=== PATIENT | male | born 1975 | race Caucasian/White ===

== ENCOUNTER 2022-01-23 21:29 | Emergency (ER) | payer BC ==
[~2022-01-23] VITALS: Ht 172.7 cm; Wt 77.7 kg
[2022-01-23 21:29] VITALS: BP 118/77
[2022-01-23] MEDS ORDERED: CETI-24 PO (21:40)
[2022-01-23] MEDS ORDERED: BOOSTRIX/ADACEL VACCINE (DIPHTH/PERTUSS/ACELL/TETANUS) 0.5ML SYR IM.IMMUN ONE (23:30)
== END 2022-01-23 23:38 | disposition home or self-care (01) ==
LOC: M ED 21:29
DX: S01.01XA Laceration without foreign body of scalp, initial encounter (principal); W22.8XXA Striking against or struck by other objects, initial encounter; J30.2 Other seasonal allergic rhinitis; F17.200 Nicotine dependence, unspecified, uncomplicated; F12.10 Cannabis abuse, uncomplicated